=== PATIENT | male | born 1990 | race African-American/Black ===

== ENCOUNTER 2022-06-06 17:30 | Emergency (ER) | payer SELFPAY ==
[2022-06-06] VITALS (7 sets, daily range): BP systolic 103–133; BP diastolic 49–91
[~2022-06-06] VITALS: Ht 195.6 cm; Wt 145.4 kg
[2022-06-06] MEDS ORDERED: NAPROXEN500 MG PO (23:32)
== END 2022-06-07 | disposition home or self-care (01) | DRG 563 ==
LOC: ED 17:30
DX: S93.401A Sprain of unspecified ligament of right ankle, initial encounter (principal); Y93.67 Activity, basketball